=== PATIENT | female | born 1945 | race Two or more races ===

== ENCOUNTER 2018-03-28 12:06 | Emergency (ER) | payer OTHER ==
--- NOTE | 2018-03-28 13:01 | PDOC ---
Rapid Medical Evaluation Medical Evaluation: Allergies Allergy/AdvReac Type Severity Reaction Status Date / Time No Known Allergies Allergy Verified 05/18/11 08:13 I have performed a brief in-person evaluation of this patient. The patient presents with a chief complaint of: c/o burning epigastric pain, fever, nausea x 3 days; denies vomiting, diarrhea, URI sxs, recent travel Pertinent physical exam findings: In NAD, lungs CTA B/L, abdomen soft, ND, NT I have ordered the following: Labs, IVF, Tylenol, Zofran, Pepcid The patient will proceed to the ED for further evaluation. 03/28/18 12:57
[2018-03-28] MEDS ORDERED: ONDANSETRON 4 MG/2 ML VIAL IVPUSH ONE (13:02)
[2018-03-28] MEDS ORDERED: ACETAMINOPHEN 325 MG TABLET (FP) PO ONE (13:02)
[2018-03-28 13:03] VITALS: BMI 30.9
[2018-03-28] MEDS ORDERED: FAMOTIDINE 20 MG/50 ML IVPB 20 MG/50 ML MG IVPB ONE ×2 (13:03→14:04)
[2018-03-28 13:34] LABS: BASO % 0.8 % (0-2.0); EOS % 0.2 % (0-4.5); HEMATOCRIT 42.1 % (32.4-45.2); HEMOGLOBIN 13.5 GM/dL (10.7-15.3); LYMPH % 14.6 % (8-40); MCH 24.1 pg (25.7-33.7); MEAN CELL VOLUME 75.4 fl (80-96); MEAN PLT VOLUME 8.9 fl (7.5-11.1); MONO % 14.6 % (3.8-10.2); NEUT % 69.8 % (42.8-82.8); PLATELET COUNT 209 K/MM3 (134-434); RBC 5.58 M/mm3 (3.60-5.2); RDW 15.8 % (11.6-15.6)
[2018-03-28] MEDS ORDERED: ACETAMINOPHEN 325 MG TABLET (FP) ONE (14:04)
[2018-03-28] MEDS ORDERED: ONDANSETRON 4 MG/2 ML VIAL ONE (14:04)
[2018-03-28 14:07] LABS: ALBUMIN 3.5 g/dl (3.4-5.0); ALK PHOS 79 U/L (45-117); ANION GAP 8 MMOL/L (8-16); BILIRUBIN,TOTAL 0.7 mg/dL (0.2-1); BLOOD UREA NITROGEN 12 mg/dL (7-18); CHLORIDE 103 mmol/L (98-107); CO2 24 mmol/L (21-32); CREATININE 0.8 mg/dL (0.55-1.3); GLUCOSE,RANDOM 122 mg/dL (74-106); LIPASE 123 U/L (73-393); SGOT/AST 19 U/L (15-37); SGPT/ALT 38 U/L (13-61); SODIUM 136 mmol/L (136-145); TOT PROT 8.2 g/dl (6.4-8.2)
[2018-03-28] MEDS ORDERED: ALBUTEROL SO4 0.083% IH SOL 2.5 MG/3 ML VIAL.NEB. NEB ONE ×2 (14:10→14:29)
[2018-03-28] MEDS ORDERED: SODIUM CHLORIDE 1,000 ML IV STA (14:20)
--- NOTE | 2018-03-28 14:20 | PDOC ---
History of Present Illness - General Chief Complaint: Pain, Acute Stated Complaint: FEVER, HEADACHE Time Seen by Provider: 03/28/18 13:18 History Source: Patient, Family (Daughter) Exam Limitations: Language Barrier (Language barrier and pt very poor historian , very vague complaints.) Past History - Past Medical History Allergies/Adverse Reactions: Allergies Allergy/AdvReac Type Severity Reaction Status Date / Time No Known Allergies Allergy Verified 05/18/11 08:13 Home Medications: Ambulatory Orders Cephalexin [Keflex] 500 mg PO BID 5 Days #9 capsule 03/28/18 Mag Hydrox/Al Hydrox/Simeth [Mylanta Suspension -] 30 ml PO Q6H PRN #1 bottle COPD: No - Surgical History Cholecystectomy: Yes - Immunization History Immunization Up to Date: Yes - Suicide/Smoking/Psychosocial Hx Smoking Status: No Smoking History: Never smoked Number of Cigarettes Smoked Daily: 0 Information on smoking cessation initiated: No Hx Alcohol Use: No Drug/Substance Use Hx: No *Physical Exam - Vital Signs Last Vital Signs Temp Pulse Resp BP Pulse Ox 100.2 F H 111 H 16 127/78 100 03/28/18 12:59 03/28/18 12:59 03/28/18 12:59 03/28/18 12:59 03/28/18 12:59 Moderate Sedation - Procedure Monitoring Vital Signs: Procedure Monitoring Vital Signs Temperature 100.2 F H 03/28/18 12:59 Pulse Rate 111 H 03/28/18 12:59 Respiratory Rate 16 03/28/18 12:59 Blood Pressure 127/78 03/28/18 12:59 O2 Sat by Pulse Oximetry (%) 100 03/28/18 12:59 Heart Score/ECG Review - History History: Slightly suspicious - Electrocardiogram EKG: Normal - Age Age: >/= 65 - Risk Factors Risk Factors Heart Score: Yes Hx Obesity Based on the list above the patient has:: 1-2 risk factors ED Treatment Course - LABORATORY CBC & Chemistry Diagram: 03/28/18 13:15 03/28/18 13:15 - ADDITIONAL ORDERS Additional order review: Laboratory Results 03/28/18 13:15 Sodium 136 Potassium 4.0 Chloride 103 Carbon Dioxide 24 Anion Gap 8 BUN 12 Creatinine 0.8 Creat Clearance w eGFR > 60 Random Glucose 122 H Calcium 9.0 Total Bilirubin 0.7 AST 19 ALT 38 Alkaline Phosphatase 79 Troponin I < 0.02 Total Protein 8.2 Albumin 3.5 Lipase 123 03/28/18 13:15 RBC 5.58 H MCV 75.4 L MCHC 32.0 RDW 15.8 H MPV 8.9 Neutrophils % 69.8 Lymphocytes % 14.6 D Monocytes % 14.6 H Eosinophils % 0.2 D Basophils % 0.8 Medical Decision Making - Medical Decision Making Pt was seen at bedside, also will be seen by attending Dr. Win. Pt presenting with complaints of 3 days of subjective fever, nausea, fatigue, body aches, frontal headache, and chest pressure. Pt has not taken any medications at home for symptomatic relief, and has had no PCP appointment in over 2 years. Pt denies any vision changes, cough, sore throat, palpitations, SOB, vomiting, urinary symptoms, diarrhea/constipation, or leg swelling. Vitals low grade fever (100.2) tachycardic, O2 100% on RA. PE showed mild coarse breath sounds over the posterior lung garcia b/l with minimal expiratory wheezing. Mild diffuse abdominal tenderness on exam, worse in epigastric and periumbilical area, no rebound, no guarding. No CVA tenderness. Pt appears clinically dry (decreased skin turgor in hands, dry oral mucosa). Considering viral URI/influenza vs gastritis vs bronchitis/pneumonia. Minimal concern fo meningitis, as pt has no photophobia, no neck stiffness. Ordered work-up including CBC, CMP. Provided 1 L IV NS, 650 mg PO tylenol, 4 mg IV zofran, 20 mg IV pepcid, and albuterol nebulizer for improvement of dehydration. Will continue to reassess pt and monitor for symptomatic improvement. 03/28/18 14:08 CBC showed mildly elevated WBC 11.0. CMP WNL. Lipase 123. Troponin <.02 Flu negative. 03/28/18 14:13 ECG showed sinus tachycardia, intervals normal, no ST segment changes. Pt states starting to feel better and is eating fries in the vertical room. Pending UA results and chest x-ray. 03/28/18 14:37 UA showed UTI +blood, +leuk esterase +nitrites Will send keflex and maalox to pt pharmacy. Will provide first dose of keflex 500 mg in the ER. Chest x-ray as read with Dr. Win shows no localized infiltrate, mild haziness in L lower lobe, no productive cough at this time. 03/28/18 15:23 Pt has UTI and likely acid reflux. Pt can be discharged to home with follow-up. PCP appointment made for patient on Sunday. Strict return precautions provided with pt understanding. 03/28/18 15:58 *DC/Admit/Observation/Transfer Diagnosis at time of Disposition: Urinary tract infection Qualifiers: Urinary tract infection type: site unspecified Hematuria presence: with hematuria Qualified Code(s): N39.0 - Urinary tract infection, site not specified Acid reflux Qualifiers: Esophagitis presence: esophagitis presence not specified Qualified Code(s): K21.9 - Gastro-esophageal reflux disease without esophagitis - Discharge Dispostion Disposition: HOME Condition at time of disposition: Improved Decision to Admit order: No - Prescriptions Prescriptions: Cephalexin [Keflex] 500 mg PO BID 5 Days #9 capsule Mag Hydrox/Al Hydrox/Simeth [Mylanta Suspension -] 30 ml PO Q6H PRN #1 bottle PRN Reason: Indigestion - Referrals Referrals: Carla Andersen MD [Staff Physician] - - Patient Instructions Additional Instructions: You were seen in the ER today for abdominal pain, nausea, and body aches. The results of your labs and imaging today showed a urinary tract infection. Please follow-up with your primary care doctor during your scheduled appointment time to discuss your visit and make sure your symptoms have improved. Please return to the ER if you have any worsening pain, blood in your urine or stool, development of fevers or chills, loss of consciousness, inability to tolerate food or fluids, or any other concerns. I have sent maalox and an antibiotic (500 mg Keflex twice per day, for 5 days), to your pharmacy. Your appointment was made for 04/05 at 3:15 pm (Dr. De La Rosa). The office will call you in a few days to confirm. - Post Discharge Activity
[2018-03-28 14:25] LABS: URINE APPEARANCE CLOUDY; URINE BILIRUBIN NEGATIVE (<2.0 mg/dL); URINE COLOR YELLOW; URINE GLUCOSE (UA) NEGATIVE (NEGATIVE); URINE KETONE NEGATIVE (NEGATIVE); URINE LEUK ESTERASE 3+ (NEGATIVE); URINE NITRITE POSITIVE (NEGATIVE); URINE PROTEIN 1+ (NEGATIVE); URINE UROBILINOGEN NEGATIVE mg/dL (0.2-1.0)
--- NOTE | 2018-03-28 14:47 | PDOC ---
Attending Attestation - HPI HPI: 03/28/18 15:40 The patient is a 72 year old female, with no significant past medical history, who presents to the emergency department with, 3 days of generalized body aches , nausea, diarrhea. Patient notes epigastric abdominal pain and chest pressure with associated subjective fevers. She denies any palpitations or change in sensation. Allergies: NKDA Past surgical history:cholecystectomy. <Priya Alvarado - Last Filed: 03/28/18 15:39> - Resident Resident Name: Shaina Matute - ED Attending Attestation I have performed the following: I have examined & evaluated the patient, The case was reviewed & discussed with the resident, I agree w/resident's findings & plan, Exceptions are as noted - Medical Decision Making 03/28/18 14:45 72y F hx of cholecystectomy, presents with nauesa/malase/fatigue/headache, chest pressure denies any cough, fever, vomiting, dysruria, diarrhea, melena, bpr +abd pain, diffuse, epigsatric, not changed with food denies photopiba, neck pain/stiffness no travel/known sick contacts exam: febrile slightly tach scant wheeze, no respiratory distress mild epigastric tenderness neg/delfina valverde 03/28/18 15:21 pts labs reviewed UA cw UTI, influenza negative will treat with abx suspect her abd pain (burning after eating) is gERD - no sypmtoms currently but instructed not to eat spicy foods pmd fu <Ralph Win - Last Filed: 03/28/18 16:44> Heart Score/ECG Review - ECG Impressions Comment:: 03/28/18 16:44 Twelve-lead EKG was performed and reviewed by me. There is normal sinus rhythm with a rate of 103 The axis is normal. The intervals are normal. There is normal R wave progression There are no ST or T wave abnormalities. Impression: sinus tachycardia <Ralph Win - Last Filed: 03/28/18 16:44> Attestations - Attestations 03/28/18 15:40 Documentation prepared by Priya Alvarado, acting as medical oncology physician for Ralph Win MD. <Priya Alvarado - Last Filed: 03/28/18 15:39>
[2018-03-28 15:08] LABS: ANISOCYTOSIS 1+; MACROCYTOSIS 0; PLATELET ESTIMATE NORMAL
[2018-03-28] MEDS ORDERED: CEPHALEXIN MONOHYDRATE 500 MG CAPSULE (UD) PO ONE (15:25)
[2018-03-28 15:57] LABS: EPI CELLS 2+ /HPF (FEW); URINE BACTERIA 3+ /hpf (NONE SEEN)
[2018-03-28] MEDS ORDERED: CEPHALEXIN MONOHYDRATE 500 MG CAPSULE (UD) ONE (16:05)
[2018-03-28 16:17] VITALS: BP 122/77; PULSE 89; TEMP 98.4
--- NOTE | 2018-03-29 11:29 | EKG ---
Test Reason : Blood Pressure : / mmHG Vent. Rate : 103 BPM Atrial Rate : 103 BPM P-R Int : 144 ms QRS Dur : 076 ms QT Int : 350 ms P-R-T Axes : 050 028 050 degrees QTc Int : 458 ms SINUS TACHYCARDIA OTHERWISE NORMAL ECG WHEN COMPARED WITH ECG OF 18-MAY-2011 12:30, NO SIGNIFICANT CHANGE WAS FOUND Confirmed by WALE CORRALES MD ([id number]) on 03/29/2018 11:29:15 AM Referred By: Confirmed By:WALE CORRALES MD
== END 2018-03-28 16:15 | disposition home or self-care (01) ==
LOC: JER 12:06
PROC: 3E033GC Introduction of Other Therapeutic Substance into Peripheral Vein, Percutaneous Approach (ICD-10-PCS; principal; 2018-03-28)
PROC: 3E033GC Introduction of Other Therapeutic Substance into Peripheral Vein, Percutaneous Approach (ICD-10-PCS; 2018-03-28)
PROC: 3E033GC Introduction of Other Therapeutic Substance into Peripheral Vein, Percutaneous Approach (ICD-10-PCS; 2018-03-28)
DX: N39.0 Urinary tract infection, site not specified (principal); B96.20 Unspecified Escherichia coli [E. coli] as the cause of diseases classified elsewhere; K21.9 Gastro-esophageal reflux disease without esophagitis
CPT/HCPCS: 36415; 71046-TC-FY; 80053; 81003; 81015; 83690; 84484; 85025; 87086; 87186; 87804; 93005; 93010; 99285-25; J7030

== ENCOUNTER 2018-12-26 10:09 | Emergency (ER) | payer OTHER ==
[2018-12-26 10:19] VITALS: BMI 32.9
--- NOTE | 2018-12-26 10:55 | PDOC ---
Attending Attestation - Resident Resident Name: Armando Davidashleighjorge - HPI HPI: 12/26/18 14:05 Pt presents to the ED complaining of burning epigastric pain that has been persistent since yesterday. History of similar pain in the past that spontaneously resolves, presents today because the pain is persistent. Denies fever, nausea or vomiting. Denies chest pain. - Physicial Exam PE: 12/26/18 14:18 agree with resident exam. Patient is alert and oriented and in no acute distress. abdomen is soft, non tender, non distended without guarding or rebound. Lungs are clear. Heart regular rate and rhythm. - Medical Decision Making 12/26/18 14:19 Pt presents to the ED complaining of epigastric pain similar to, but more persistent than, her chronic epigastric pain. Pain is most consistent with PUD or GERD, but labs checked to evaluate for biliary disease or ACS. PAtient has no improivement of her symptoms with pepcid and maalox, so given her age, will check CT. Will likely discharge if CT is negative.
--- NOTE | 2018-12-26 11:43 | PDOC ---
History of Present Illness - General Chief Complaint: Pain Stated Complaint: ABD.PAIN Time Seen by Provider: 12/26/18 10:50 - History of Present Illness Initial Comments: 12/26/18 11:38 73 y/o F hx of cholecystectomy presents to the ED with 2 days of epigastric and left upper quadrant pain. She describes the pain as 10/10 waxing and waning pain that radiates from her upper abdomen towards her left side. She has not taken any medications at home for relief.she had one episode on non-bloody, non bilious emesis yesterday and some nausea. Her last bowel movement was yesterday and she has been passing gas.She denies any nausea currently, diarrhea , bloody stools, recent alcohol use, hx of diabetes, fevers, chills, dysuria, hematuria, frequency/urgency. 12/26/18 12:40 On further questioning by attending physician, pt endorses that pain has been chronic and Ed visit was prompted by worsening from her baseline. She equally endorses a burning sensation in the epigastric area more along the lines of acid reflux. Past History - Past Medical History Allergies/Adverse Reactions: Allergies Allergy/AdvReac Type Severity Reaction Status Date / Time No Known Allergies Allergy Verified 05/18/11 08:13 Home Medications: Ambulatory Orders NK [No Known Home Medication] 12/26/18 Asthma: No Cardiac Disorders: No COPD: No Diabetes: No HTN: No Hypercholesterolemia: No - Surgical History Cholecystectomy: Yes Orthopedic Surgery: Yes ("spinal") - Immunization History Immunization Up to Date: Yes - Suicide/Smoking/Psychosocial Hx Smoking Status: No Smoking History: Never smoked Number of Cigarettes Smoked Daily: 0 Hx Alcohol Use: No Drug/Substance Use Hx: No Review of Systems - Review of Systems Constitutional: No: Chills, Fever HEENTM: No: Blurred Vision Respiratory: No: Cough, Shortness of Breath Cardiac (ROS): No: Chest Pain ABD/GI: Yes: Symptoms Reported : No: Burning, Dysuria Musculoskeletal: Yes: Back Pain Integumentary: No: Bruising, Change in Color Neurological: Yes: Headache *Physical Exam - Vital Signs Last Vital Signs Temp Pulse Resp BP Pulse Ox 97.9 F 66 16 153/93 97 12/26/18 10:17 12/26/18 10:17 12/26/18 10:17 12/26/18 10:17 12/26/18 10:17 - Physical Exam General Appearance: Yes: Nourished, Appropriately Dressed, Moderate Distress HEENT: positive: Normal Voice. negative: Scleral Icterus (R), Scleral Icterus ( L) Neck: positive: Trachea midline, Supple Respiratory/Chest: positive: Rales. negative: Chest Tender, Respiratory Distress, Labored Respiration, Decreased Breath Sounds Cardiovascular: positive: Regular Rhythm, Regular Rate, S1, S2. negative: JVD Gastrointestinal/Abdominal: positive: Normal Bowel Sounds, Soft, Protuberent, Tenderness (epigastric \\). negative: Distended Musculoskeletal: positive: Normal Inspection Extremity: positive: Normal Capillary Refill, Normal Inspection, Normal Range of Motion Integumentary: positive: Normal Color, Dry, Warm Neurologic: positive: Fully Oriented, Alert, Normal Mood/Affect ED Treatment Course - LABORATORY CBC & Chemistry Diagram: 12/26/18 12:02 12/26/18 12:02 - RADIOLOGY Radiology Studies Ordered: Category Date Time Status ABDOMEN & PELVIS CT WITH CONTR [CT] Stat CT Scan 12/26/18 11:31 Ordered Medical Decision Making - Medical Decision Making 12/26/18 11:50 73 y/o F hx of cholecystectomy presents to the ED with 2 days of epigastric and left upper quadrant pain. pancreatitis vs biliary colic vs acs Labs/Imaging/Meds -ekg, cbc, cmp, troponin, ct abdomen and pelvis with iv contrast, lipase. EKG: normal sinus rhythm, normal EKG CT scan Dr. Wai Gordon contacted for clarification on the CT.Pnemobilia is not an unusual finding in patients who have undergone cholecystectomy especially if it was accompanied by sphincterotomy. Recommends follow up with GI. 12/26/18 15:06 *DC/Admit/Observation/Transfer Diagnosis at time of Disposition: Abdominal pain Qualifiers: Abdominal location: epigastric Qualified Code(s): R10.13 - Epigastric pain - Discharge Dispostion Disposition: HOME Condition at time of disposition: Stable Decision to Admit order: No - Referrals - Patient Instructions Printed Discharge Instructions: Acute Abdominal Pain Additional Instructions: Please return to the emergency department immediately should you feel worse in any way or have any of the following symptoms: increasing or different abdominal pain, persistent vomiting, fevers or shaking chills. Please return to the emergency department for a recheck in 8-12 hours if the pain is persistent or worse so we can re-evaluate you and ensure that you are not developing a problem that would require surgery or hospitalization. Schedule follow up with your primary care provider and GI doctor in the next week You can take tylenol at home for pain. Follow server manager's instructions for use. we are also sending you home with some pepcid for relief as needed. - Post Discharge Activity
[2018-12-26] MEDS ORDERED: ACETAMINOPHEN 1000 MG/100 ML VIAL (NON FORMULARY) IVPB ONE (11:51)
[2018-12-26] MEDS ORDERED: ACETAMINOPHEN INJECTION 100 ML IVPB ONE (11:51)
[2018-12-26 12:30] LABS: BASO % 0.6 % (0-2.0); EOS % 4.7 % (0-4.5); HEMATOCRIT 40.8 % (32.4-45.2); HEMOGLOBIN 13.1 GM/dL (10.7-15.3); LYMPH % 37.7 % (8-40); MCH 24.5 pg (25.7-33.7); MCHC 32.2 g/dl (32.0-36.0); MEAN CELL VOLUME 76.2 fl (80-96); MEAN PLT VOLUME 9.8 fl (7.5-11.1); MONO % 9.4 % (3.8-10.2); NEUT % 47.6 % (42.8-82.8); PLATELET COUNT 221 K/MM3 (134-434); RBC 5.35 M/mm3 (3.60-5.2); RDW 15.8 % (11.6-15.6); WHITE BLOOD COUNT 5.4 K/mm3 (4.0-10.0)
[2018-12-26] MEDS ORDERED: FAMOTIDINE 20 MG/50 ML IVPB 20 MG/50 ML MG IVPB ONE ×2 (12:39→13:03)
[2018-12-26] MEDS ORDERED: MAG HYDROX/AL HYDROX/SIMETH 30 ML UNIT-DOSE CUP PO ONE (12:39)
[2018-12-26 12:59] LABS: ALBUMIN 3.6 g/dl (3.4-5.0); ALK PHOS 86 U/L (45-117); ANION GAP 5 MMOL/L (8-16); BILIRUBIN,TOTAL 0.5 mg/dL (0.2-1); BLOOD UREA NITROGEN 11.2 mg/dL (7-18); CALCIUM 9.1 mg/dL (8.5-10.1); CHLORIDE 106 mmol/L (98-107); CO2 29 mmol/L (21-32); CREATININE 0.6 mg/dL (0.55-1.3); GLUCOSE,RANDOM 83 mg/dL (74-106); LIPASE 115 U/L (73-393); POTASSIUM 4.5 mmol/L (3.5-5.1); SGOT/AST 35 U/L (15-37); SGPT/ALT 45 U/L (13-61); SODIUM 141 mmol/L (136-145); TOT PROT 7.7 g/dl (6.4-8.2)
[2018-12-26] MEDS ORDERED: MAG HYDROX/AL HYDROX/SIMETH 30 ML UNIT-DOSE CUP ONE (13:02)
--- NOTE | 2018-12-26 14:05 | EKG ---
Test Reason : Blood Pressure : / mmHG Vent. Rate : 060 BPM Atrial Rate : 060 BPM P-R Int : 180 ms QRS Dur : 076 ms QT Int : 466 ms P-R-T Axes : 042 034 062 degrees QTc Int : 466 ms NORMAL SINUS RHYTHM NORMAL ECG WHEN COMPARED WITH ECG OF 28-MAR-2018 14:12, VENT. RATE HAS DECREASED BY 43 BPM Confirmed by CHAN FITZPATRICK MD ([id number]) on 12/26/2018 2:04:55 PM Referred By: Confirmed By:CHAN FITZPATRICK MD
[2018-12-26 15:35] VITALS: BP 105/57; PULSE 83; TEMP 97.4
== END 2018-12-26 15:50 | disposition home or self-care (01) ==
LOC: JER 10:09
PROC: 3E033GC Introduction of Other Therapeutic Substance into Peripheral Vein, Percutaneous Approach (ICD-10-PCS; principal; 2018-12-26)
PROC: 3E033NZ Introduction of Analgesics, Hypnotics, Sedatives into Peripheral Vein, Percutaneous Approach (ICD-10-PCS; 2018-12-26)
DX: R10.9 Unspecified abdominal pain (principal)
CPT/HCPCS: 36415; 74177-TC; 80053; 83690; 84484; 85025; 93005; 93010; 99283-25; J0131